=== PATIENT | male | born 1990 | race Caucasian/White ===

== ENCOUNTER 2018-10-09 07:23 | Day surgery (SDC) | payer OTHER ==
[~2018-10-09] VITALS: Ht 182.9 cm; Wt 81.6 kg
[~2018-10-09 07:23] MED LIST: ACYCLOVIR200 MG PO; AMOXICILLIN500 MG PO; HYDROCORTISO2.51 EX; NO MEDS
[2018-10-09] MEDS ORDERED: PERCOCET 5/325M1 TAB PO (10:43)
[2018-10-09] MEDS ORDERED: MOTRIN800 MG PO (10:43)
[2018-10-09 10:59] VITALS: BP 111/56
== END 2018-10-09 11:00 | disposition home or self-care (01) | DRG 585 ==
LOC: ORM 07:23
PROVIDERS: ATTEND Surgery
PROC: 0HBU0ZX Excision of Left Breast, Open Approach, Diagnostic (ICD-10-PCS; principal; 2018-10-09)
DX: N62 Hypertrophy of breast (principal)
CPT/HCPCS: C9290

== ENCOUNTER 2019-08-16 09:36 | Emergency (ER) | payer OTHER ==
[~2019-08-16] VITALS: Ht 182.9 cm; Wt 86.8 kg
[~2019-08-16 09:36] MED LIST changes: +MOTRIN800 MG PO; +PERCOCET 5/325M1 TAB PO
[2019-08-16] MEDS ORDERED: PREDNISONE50 MG PO (10:15)
[2019-08-16 10:42] VITALS: BP 123/70
== END 2019-08-16 10:42 | disposition home or self-care (01) | DRG 607 ==
LOC: ED 09:36
DX: L23.7 Allergic contact dermatitis due to plants, except food (principal)

== ENCOUNTER 2021-04-25 12:32 | Emergency (ER) | payer OTHER, BC ==
[~2021-04-25] VITALS: Ht 182.9 cm; Wt 95.0 kg
[~2021-04-25 12:32] MED LIST changes: +PREDNISONE50 MG PO
[2021-04-25 14:45] VITALS: BP 112/74
== END 2021-04-25 14:45 | disposition home or self-care (01) | DRG 552 ==
LOC: ED 12:32
DX: S16.1XXA Strain of muscle, fascia and tendon at neck level, initial encounter (principal); M25.511 Pain in right shoulder; M54.6 Pain in thoracic spine; M54.5 Low back pain; V49.40XA Driver injured in collision with unspecified motor vehicles in traffic accident, initial encounter